=== PATIENT | female | born 1970 ===

== ENCOUNTER 2021-02-17 15:13 | Emergency (ER) | payer OTHER ==
[~2021-02-17] VITALS: Ht 162.6 cm; Wt 74.8 kg
[2021-02-17] MEDS ORDERED: cefTRIAXone SOD 1,000 MG VL IM ONE (17:45)
[2021-02-17] MEDS ORDERED: KETOROLAC TROMETH 60MG/2ML VIAL IM ONE (17:45)
[2021-02-17 17:47] VITALS: BP 119/71
== END 2021-02-17 18:50 | disposition home or self-care (01) ==
LOC: ER 15:13
DX: S60.211A Contusion of right wrist, initial encounter (principal); S70.12XA Contusion of left thigh, initial encounter; S80.212A Abrasion, left knee, initial encounter; S80.211A Abrasion, right knee, initial encounter; S70.211A Abrasion, right hip, initial encounter; V03.90XA Pedestrian on foot injured in collision with car, pick-up truck or van, unspecified whether traffic or nontraffic accident, initial encounter; Y93.89 Activity, other specified; Y92.410 Unspecified street and highway as the place of occurrence of the external cause; Y99.8 Other external cause status
CPT/HCPCS: 73110; 73552; 96372; 99284; J0696; J1885